=== PATIENT | male | born 1990 ===

== ENCOUNTER 2024-06-08 07:42 | Emergency (ER) | payer SELFPAY ==
[2024-06-08] VITALS (9 sets, daily range): BP systolic 116–181; BP diastolic 71–131; PULSE 102–119; RESP 16–22; TEMP 36.4–36.8; O2SAT 96–100; BMI 22.8
--- NOTE | 2024-06-08 07:35 | EDNOTE_ITS ---
Altered Mental Status RME/HPI General Chief Complaint: Altered Mental Status Stated Complaint: altered RME / HPI RME / HPI narrative: Patient BIBA no identity information confirmed. Found on the street, cold to touch blood glucose reads HIGH GCS 11 unaware of baseline. Patient not currently verbal Related Data Home Medications ?Medication ?Instructions ?Recorded ?Confirmed Unobtainable 06/08/24 06/08/24 Allergies Allergy/AdvReac Type Severity Reaction Status Date / Time Unable to Assess Allergy Verified 06/08/24 08:07 Review of Systems Review of Systems ROS Unobtainable: unobtainable due to mental status ED Exam Narrative Physical exam: GENERAL APPEARANCE: Seated, looking off to the right and a waxy catatonic state, unkept, his pants are undone down to his ankles (EMS states he was found this way). HEENT: NC, AT. Mucous membranes dry. EOMI, clear conjunctiva, oropharynx clear. NECK: No stiffness or restricted ROM. HEART: Normal rate and regular rhythm, normal S1/S1, no m/r/g LUNGS: CTAB, moving air well. No crackles or wheezes are heard. ABDOMEN: Soft, nontender, nondistended with good bowel sounds heard. EXTREMITIES: Without cyanosis, clubbing or edema. MUSCULOSKELETAL: FROM of all major joints, no chest tenderness NEUROLOGICAL: Grossly nonfocal. Moving all 4 extremities with a waxy flexibility, cranial nerves grossly intact Skin: Warm and dry without any rash, multiple tattoos with sexual innuendo Course Course Course Narrative: Patient had a labile mental status where he had an overt tonic-clonic seizure followed by a very violent/aggressive postictal phase requiring code weber with restraints. Due to labile mental status, patient was intubated for airway protection. See midlevel provider procedure note with myself as a purchasing supervisor for intubation. Quality Measures none Orders Category Date Time Status Bedside Blood Glucose NOW Care 06/08/24 07:50 Active EKG (ED ONLY) *Do not use* NOW Care 06/08/24 07:51 Completed Insert IV NOW Care 06/08/24 08:11 Active Referral - Isotope Technologist Stat Cons 06/08/24 10:48 Active Referral - Isotope Technologist Stat Cons 06/08/24 10:[address] head/brain wo con Stat Exams 06/08/24 08:49 Completed EKG (ED Only) Stat Exams 06/08/24 07:51 Draft XR chest 1V portable Stat Exams 06/08/24 11:13 Completed Alcohol, Blood Medical Stat Lab 06/08/24 07:55 Completed CBC Stat Lab 06/08/24 07:55 Completed CMP [Comprehensive Metabolic Panel] Stat Lab 06/08/24 07:55 Completed Drug Screen,Urine Stat Lab 06/08/24 08:09 Completed Ketone [Beta Hydroxybutyrate] Stat Lab 06/08/24 07:55 Completed Urinalysis Stat Lab 06/08/24 07:57 Completed Venous Blood Gas Stat Lab 06/08/24 07:55 Completed Dexamethasone Inj [Decadron Inj] Med 06/08/24 10:49 Discontinued 10 mg IV X1 ONE Etomidate Inj [Amidate Inj] Med 06/08/24 10:49 Discontinued 20 mg IV X1 ONE Insulin Regular Med 06/08/24 13:40 Discontinued 10 unit SC X1 ONE Insulin Regular Med 06/08/24 14:28 Discontinued 5 unit SC X1 ONE LORazepam [Ativan Inj] Med 06/08/24 09:55 Discontinued 2 mg .ROUTE .STK-MED ONE LORazepam [Ativan Inj] Med 06/08/24 10:11 Discontinued 2 mg IVP X1 ONE Mannitol Inj 20% IVPB 340 ml Med 06/08/24 12:40 Discontinued Pre-Mixed [Pre-mixed Bag] 1 bag IV X1 Propofol 1,000 mg Ivpb [Diprivan Ivpb] Med 06/08/24 11:14 Active 1,000 mg in 100 ml IV 5 mcg/kg/min Sodium Chloride 0.9% 1000 ml [Ns] 1,000 ml Med 06/08/24 07:56 Discontinued IV 999 mls/hr Sodium Chloride 0.9% 1000 ml [Ns] 1,000 ml Med 06/08/24 07:56 Discontinued IV 999 mls/hr Succinylcholine Inj [Anectine Inj] Med 06/08/24 10:49 Discontinued 120 mg IV X1 ONE levETIRAcetam INJ [Keppra Inj] Med 06/08/24 08:49 Discontinued 1,000 mg IVP X1 ONE Mechanical [Volume Ventilator] Stat RT 06/08/24 Active Vital Signs Vital signs: Vital Signs Temperature 97.5 F 06/08/24 07:40 Pulse Rate 102 H 06/08/24 07:40 Respiratory Rate 22 H 06/08/24 07:40 Blood Pressure 181/131 H 06/08/24 07:40 Pulse Oximetry (%) 98 06/08/24 07:40 Oxygen Delivery Method Room Air 06/08/24 07:40 Altered Mental Status MDM Narrative MDM Narrative:: Mr. Berrios presents [facility] the [facility] by EMS and altered mental status, nonverbal. He had a labile mental status here without a focal neurologic deficit. He presented initially more catatonic and a waxy state, that evolved to a full body tonic-clonic seizure followed by severe agitation/aggression, where he is not following commands or acknowledging his name. Given his significant cerebral edema and labile mental status he required intubation for airway protection and stabilization for transport to higher level of care with neurosurgery. Case was discussed with [facility] neurosurgery, Dr. Lynn and agrees to accept ER to ER for further management. Patient data External records reviewed:: EMS form Clinical information provided by:: EMS Social determinants that could affect healthcare access:: substance use Patient has the following chronic illnesses:: unknown How is presenting disease/condition affected by chronic disease/condition?: no chronic disease Evaluation data The following diagnostics were reviewed and interpreted by me:: lab results and EKG tracing(s) (Snuns tachycardia, rate 111, normal intervals, normal axis, no acute ST or T wave changes. ) Lab and/or radiology exams considered but not ordered:: none Interpretation Summary: Ordering Physician: Jorden Powers MD Date of Service: 06/08/24 Procedure(s): CT head/brain wo con Accession Number(s): [id number] cc: Jorden Powers MD; Paras Oliver MD~ Examination: CT brain head without contrast. 2-D sagittal coronal reconstructions Date and time of exam:June 08, 2024 0937 hrs. Indications: Altered mental status with seizure this morning CTDI: vol (mGy):48.3 DLP: (mGycm):1070 Technique: Multiple CT axial sections of the brain have been obtained, 5 mm slice thickness. Contrast has not been administered. 2-D sagittal, coronal reconstructions have been obtained Low dose protocols were performed. One or more of the following dose reduction techniques were used; automated exposure control, adjustment of the mA and/or KV according to patient size, use of iterative reconstruction technique. Findings: Large, 5 cm x 4 cm area of edema in the right frontal lobe which impinges upon the right frontal horn No acute hemorrhage density Ventricles are not enlarged Fourth ventricle is midline Cranial vault is intact Impression: Large abnormal area of edema in the right frontal lobe, differential would include cerebral neoplasm including cerebral metastatic lesion, infarct not excluded Recommend brain MRI MRA follow-up pre and postcontrast Dictated By: Paras Oliver MD Signed By: <Electronically signed by Paras Oliver MD in OV> 06/08/24 1023 ==== Ordering Physician: Jorden Powers MD Date of Service: 06/08/24 Procedure(s): XR chest 1V portable Accession Number(s): [id number] cc: Jorden Powers MD; Paras Oliver MD~ Examination: AP chest single view Technique: AP portable semiupright chest single view Exam date and time: June 08, 2024 1124 hrs. Indications: Postintubation Findings: Normal heart size Tracheal tube tip 5.8 cm above edwin No aspiration pneumonia Orogastric tube sidehole is near the GE junction Impression: No aspiration pneumonia or pulmonary edema Advance the orogastric tube 5 cm Dictated By: Paras Oliver MD Signed By: <Electronically signed by Paras Oliver MD in OV> 06/08/24 1323 Medications / Prescriptions Medications or Prescriptions considered but not ordered:: none Medication administrations:: Medication Administration History Propofol (Diprivan Ivpb) 1,000 mg in 100 mls @ 2.041 mls/hr IV .Q24H PRN; Protocol PRN Reason: PER PROTOCOL Stop: 07/08/24 11:13 Last Admin: 06/08/24 14:30 Dose: 50 mcg/kg/min, 20.412 mls/hr Documented By: VG Co-signed By: DO Titration: 06/08/24 14:30 Dose: Infused Documented By: VG Co-signed By: DO Titration: 06/08/24 12:10 Dose: 50 mcg/kg/min, 20.412 mls/hr Documented By: Titration: 06/08/24 12:05 Dose: 45 mcg/kg/min, 18.371 mls/hr Documented By: Titration: 06/08/24 12:00 Dose: 40 mcg/kg/min, 16.329 mls/hr Documented By: Titration: 06/08/24 11:55 Dose: 35 mcg/kg/min, 14.288 mls/hr Documented By: Titration: 06/08/24 11:50 Dose: 30 mcg/kg/min, 12.247 mls/hr Documented By: Titration: 06/08/24 11:45 Dose: 25 mcg/kg/min, 10.206 mls/hr Documented By: Titration: 06/08/24 11:40 Dose: 20 mcg/kg/min, 8.165 mls/hr Documented By: Titration: 06/08/24 11:35 Dose: 15 mcg/kg/min, 6.124 mls/hr Documented By: Titration: 06/08/24 11:30 Dose: 10 mcg/kg/min, 4.082 mls/hr Documented By: Admin: 06/08/24 11:25 Dose: 5 mcg/kg/min, 2.041 mls/hr Documented By: VG Co-signed By: Discontinued Medications Dexamethasone Sodium Phosphate (Dexamethasone Sod Phos Inj 10 Mg/Ml Vial) 10 mg IV X1 ONE Stop: 06/08/24 10:50 Last Admin: 06/08/24 11:05 Dose: 10 mg Documented By: VG Etomidate (Etomidate Inj 2 Mg/Ml Vial 10 Ml) 20 mg 0.3 mg/kg (20 mg) IV X1 ONE Stop: 06/08/24 10:50 Last Admin: 06/08/24 11:08 Dose: 20 mg Documented By: VG Sodium Chloride (Ns) 1,000 mls @ 999 mls/hr IV .Q1H1M ONE Stop: 06/08/24 08:56 Last Infusion: 06/08/24 10:12 Dose: Infused Documented By: Admin: 06/08/24 08:04 Dose: 999 mls/hr Documented By: MARKEL Sodium Chloride (Ns) 1,000 mls @ 999 mls/hr IV .Q1H1M ONE Stop: 06/08/24 08:56 Last Infusion: 06/08/24 10:12 Dose: Infused Documented By: Admin: 06/08/24 08:05 Dose: 999 mls/hr Documented By: MARKEL Mannitol 340 ml/ IV (Miscellaneous Supplies) 340 mls @ 453.333 mls/hr IV X1 ONE Stop: 06/08/24 12:41 Last Infusion: 06/08/24 15:19 Dose: Infused Documented By: Admin: 06/08/24 13:26 Dose: 453.333 mls/hr Documented By: MARKEL Insulin Human Regular (Insulin Hum Regular 1 Unit/0.01 Ml (Per Unit)) 10 unit SC X1 ONE Stop: 06/08/24 13:41 Last Admin: 06/08/24 14:29 Dose: Not Given Documented By: MARKEL Non-Admin Reason: Cancelled by Provider Insulin Human Regular (Insulin Hum Regular 1 Unit/0.01 Ml (Per Unit)) 5 unit SC X1 ONE Stop: 06/08/24 14:29 Last Admin: 06/08/24 14:29 Dose: 5 unit Documented By: MARKEL Co-signed By: Levetiracetam (Levetiracetam Inj 100 Mg/Ml Vial 5ml) 1,000 mg IVP X1 ONE Stop: 06/08/24 08:50 Last Admin: 06/08/24 08:57 Dose: 1,000 mg Documented By: MARKEL Lorazepam (Lorazepam 2 Mg/Ml Vial) Confirm Administered Dose 2 mg .ROUTE .STK- MED ONE Stop: 06/08/24 09:56 Last Admin: 06/08/24 10:12 Dose: Not Given Documented By: MARKEL Non-Admin Reason: Duplicate Medication on eMAR Lorazepam (Lorazepam 2 Mg/Ml Vial) 2 mg IVP X1 ONE Stop: 06/08/24 10:12 Last Admin: 06/08/24 10:12 Dose: 2 mg Documented By: MARKEL Succinylcholine Chloride (Succinylcholine Inj 20 Mg/Ml Vial 10 Ml) 120 mg IV X1 ONE Stop: 06/08/24 10:50 Last Admin: 06/08/24 11:09 Dose: 120 mg Documented By: VG see above Consultations Consultation(s) initiated? (list below): Yes Consultation #1 (Physician, Specialty, Details): Discussed with [facility] regarding the patients current status and results, agrees to transfer patient, accepted by Dr. Gómez. Consultation #2 (Physician, Specialty, Details): Case was discussed with [facility], neurosurgery and recommends starting mannitol 1 g/kg and to see if an MRI/MRA can be done here. As patient cannot consent to the screening form MRI cannot be done here at [facility]. Pending callback from neurosurgeon Time: 12:30 Diagnosis Differential diagnosis altered mental status: other (polysubstance abuse, intoxication, seizure, postictal, CVA) Most likely diagnosis given after review of the tests above:: brain mass, altered mental status, new onset seizure. Admission Indicated Admission indicated?: indicated Admission Request Was there a request for admission?: No Disposition Plan Disposition Plan: Transfer Critical Care Time Critical Care Time Critical Care Time: Yes Total Critical Care Time (min.): 60 Attestation: Excluding billable procedures for the rep response, analysis, management, treatment, deliberation with specialist, and documentation to prevent the very possible risk of cardiovascular and/or pulmonary decompensation or . Discharge Plan Plan Patient Disposition: Xfer Acute Care Fac Service Needed for Transfer: Neurosurgery Prescriptions/Referrals Prescriptions/Med Rec: No Action Unobtainable Problem List Clinical Impression: Altered mental status, Cerebral edema Patient/Caregiver Discharge Instructions Education Materials: ED Confusion Print Language: Maori Stand Alone Forms: [employer]ura Award Info., Patient Portal Info Letter
--- NOTE | 2024-06-08 07:51 | EKG_ITS ---
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
[2024-06-08 08:03] LABS: Base Excess, Venous 1 (-3-3); O2 Saturation, Venous 68 % (96-97); PCO2, Venous 54 mmHg (36-56); PO2, Venous 38 mmHg (15-58); pH, Venous 7.33 (7.33-7.66)
[2024-06-08 08:04] LABS: Basophils % (Auto) 0 % (0-2.5); Eosinophils % (Auto) 0 % (0-10); Hematocrit 44.1 % (41.0-53.0); Hemoglobin 15.7 g/dL (13.5-16.0); Immature Granulocytes % (Auto) 1 % (0-0); Immature Granulocytes Auto 0.07 Thou/mm3 (0.00-0.00); Lymphocytes # (Auto) 0.9 Thou/mm3 (1.0-4.8); Lymphocytes % (Auto) 8 % (10-50); Mean Corpuscular HGB Conc 35.6 g/dl (31.0-37.0); Mean Corpuscular Hemoglobin 29.5 pg (25.0-35.0); Mean Corpuscular Volume 83 fL (80-100); Monocytes # (Auto) 0.5 Thou/mm3 (0.0-0.8); Monocytes % (Auto) 4 % (0-12); Neutrophils # (Auto) 10.3 Thou/mm3 (1.8-7.7); Neutrophils % (Auto) 87 % (37-80); Nucleated Red Blood Cell % 0 /100 WBC (0); Platelet Count 614 Thou/mm3 (140-440); RDW Standard Deviation 35.7 fL (35.1-43.9); Red Blood Count 5.32 Miln/mm3 (4.50-5.90); White Blood Count 11.9 Thou/mm3 (3.8-10.6)
[2024-06-08] MEDS: SODIUM CHLORIDE 0.9% 1000 ML 1,000 ML 999 ML IV ×2 (08:04→08:05)
[2024-06-08 08:15] LABS: Beta Hydroxybutyrate 2.1 mmol/L (<0.6)
[2024-06-08 08:17] LABS: Collection Type, Urine Clean Catch
[2024-06-08 08:35] LABS: Alanine Aminotransferase 23 U/L (10-49); Albumin, Serum 5.2 gm/dL (3.5-5.0); Albumin/Globulin Ratio 1.5 (1.2-2.2); Alcohol, Blood Medical < 3.0 mg/dL (0-10.0); Alkaline Phosphatase 323 U/L (46-116); Anion Gap 11 (7-16); Aspartate Amino Transferase < 8 U/L (0-34); BUN/Creatinine Ratio 12 Ratio (12-20); Bilirubin,Total 0.4 mg/dL (0.3-1.2); Blood Urea Nitrogen 13 mg/dL (9-23); Calcium 10.7 mg/dL (8.3-10.6); Calcium (Corrected) 10.7 mg/dL (8.5-10.1); Carbon Dioxide 26.9 mMol/L (20.0-31.0); Chloride 101 mMol/L (98-107); Creatinine (Component) 1.1 mg/dL (0.6-1.3); Estimated Creatinine Clearance 90.2 mL/min (>60); Globulin 3.5 gm/dL (2.3-3.5); Osmolality,Calculated 306 (275-295); Sodium 139 mMol/L (136-145); Total Protein 8.7 gm/dL (5.7-8.2); eGFR > 60 See Note
[2024-06-08 08:37] LABS: Glucose 623 mg/dL (74-106)
[2024-06-08 08:44] LABS: Bilirubin,Urine Negative (Negative); Blood,Urine Negative (Negative); Clarity,Urine Clear (Clear/Hazy); Color,Urine Colorless (Lt Yel-Yel); Glucose, Urine 4+ (Negative); Ketones,Urine 2+ (Negative); Leukocyte Esterase,Urine Negative (Negative); Nitrite,Urine Negative (Negative); Protein,Urine Trace (Neg - Trace); RBC,Urine 2 /hpf (0-3); Specific Gravity,Urine 1.032 (1.001-1.035); Squamous Epithelial Cell,Urine 1 /hpf (0-5); Urobilinogen,Urine Negative mg/dL (0.0-1.0); WBC,Urine < 1 /hpf (0-5)
--- NOTE | 2024-06-08 08:49 | XR_ITS ---
Examination: CT brain head without contrast. 2-D sagittal coronal reconstructions Date and time of exam:June 08, 2024 0937 hrs. Indications: Altered mental status with seizure this morning CTDI: vol (mGy):48.3 DLP: (mGycm):1070 Technique: Multiple CT axial sections of the brain have been obtained, 5 mm slice thickness. Contrast has not been administered. 2-D sagittal, coronal reconstructions have been obtained Low dose protocols were performed. One or more of the following dose reduction techniques were used; automated exposure control, adjustment of the mA and/or KV according to patient size, use of iterative reconstruction technique. Findings: Large, 5 cm x 4 cm area of edema in the right frontal lobe which impinges upon the right frontal horn No acute hemorrhage density Ventricles are not enlarged Fourth ventricle is midline Cranial vault is intact Impression: Large abnormal area of edema in the right frontal lobe, differential would include cerebral neoplasm including cerebral metastatic lesion, infarct not excluded Recommend brain MRI MRA follow-up pre and postcontrast
[2024-06-08 08:54] LABS: Amphetamine/Methamp Scrn,U Positive (Negative); Barbiturate Screen,Urine Negative (Negative); Benzodiazepines Screen,Urine Negative (Negative); Benzoylecgonine Screen, Ur Negative (Negative); Fentanyl Screen,Urine Negative (Negative); Opiate Screen,Urine Negative (Negative); THC Screen,Urine Positive (Negative)
[2024-06-08] MEDS: levETIRAcetam INJ 100 MG/ML VIAL 5ML 1000 MG IVP (08:57)
[2024-06-08] MEDS: LORazepam 2 MG/ML VIAL IVP (10:12)
[2024-06-08] MEDS: DEXAMETHASONE SOD PHOS INJ 10 MG/ML VIAL IV (11:05)
--- NOTE | 2024-06-08 11:05 | PC.NURSE ---
Dr. Powers at bedside for intubation.
[2024-06-08] MEDS: ETOMIDATE INJ 2 MG/ML VIAL 10 ML 20 MG IV (11:08)
[2024-06-08] MEDS: SUCCINYLCHOLINE INJ 20 MG/ML VIAL 10 ML 120 MG IV (11:09)
--- NOTE | 2024-06-08 11:09 | PC.CM ---
Addendum entered by Dorothy Veliz RN 06/08/24 16:50: Dr. Powers was asked to complete the portion of the transfer paperwork that patient would have signed. He did not feel he should have to sign the form stating it ready did not justify a place and reason why he should sign. Patient was unconscious and not able to sign anything from arrival. Patient was found down when ambulance picked him up. We could not Identify any family and a correct date of . Karina and I signed the form where patient was to sign. I documented patient unable to sign. 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 I faxed over paperwork to [facility]. Packet made for [facility] and [facility]. CD made for [facility] packet. Addendum entered by Dorothy Veliz RN 06/08/24 14:05: I received a call from [facility] and they stated they were going to decline patient. I let them know that patent has been accepted by [facility]. Addendum entered by Dorothy Veliz RN 06/08/24 13:51: I received a call from Megan at [facility] and she states patient has been accepted by Dr. Miles Gómez ED to ED. Number to call and give report is [phone]. I will get packet together and call [facility]. Addendum entered by Dorothy Veliz RN 06/08/24 13:10: 1300 I received a call from Martha stating she spoke to Dr. Powers and we are going to try and get an MRI at our facility. [phone] I received a call from Martha with [facility] and she states [facility] would like me to fax over information directly to their ED department. fax # [phone]. I faxed over information today. [phone] Rosa Maria and [facility] spoke to Dr. Powers. They are both reviewing patient at this time. Original Note: I received a request for higher level transfer for neurosurgery. [facility] with [facility].
--- NOTE | 2024-06-08 11:13 | XR_ITS ---
Examination: AP chest single view Technique: AP portable semiupright chest single view Exam date and time: June 08, 2024 1124 hrs. Indications: Postintubation Findings: Normal heart size Tracheal tube tip 5.8 cm above edwin No aspiration pneumonia Orogastric tube sidehole is near the GE junction Impression: No aspiration pneumonia or pulmonary edema Advance the orogastric tube 5 cm
[2024-06-08] MEDS: PROPOFOL 1,000 MG IVPB 1,000 MG/100 ML VIAL 2.041 MG IV (11:25)
--- NOTE | 2024-06-08 11:30 | PD.EDADDENDU ---
ED Procedures Intubation Time out performed: Yes sedative: Etomidate Mg Given: 20 paralytic: Succinylcholine Mg Given: 120 Laryngoscope: fiber optic video scope Assist Device Used: fiber optic device ET Tube Size: 7.5 ET Tube Uncuffed: No Tube Secured Depth (cm): 24 Tube Secured Location: teeth Tube Placement Confirmation: visualized tube passing through cords, equal breath sounds bilaterally and confirmation by capnometry Patient Tolerated Procedure: well Intubation Complications: none Additional Comments: Successful intubation with direct visualization of ET tube passing through vocal cords with Dr. Powers at bedside during procedure. Secondary confirmation obtained via chest x-ray, equal breath sound bilaterally, and capnometry.
[2024-06-08] MEDS: PRE MIXED IV (13:26)
[2024-06-08] MEDS: MANNITOL 20% IV (13:26)
[2024-06-08] MEDS: INSULIN HUM REGULAR 1 UNIT/0.01 ML (PER UNIT) 5 UNIT SC (14:29)
[2024-06-08] MEDS: PROPOFOL 1,000 MG IVPB 1,000 MG/100 ML VIAL 20.412 MG IV (14:30)
--- NOTE | 2024-06-08 15:15 | PC.NURSE ---
report called for Brian VIDAL at [facility].
--- NOTE | 2024-06-08 16:30 | PC.NURSE ---
Pt picked up by [facility] for transfer to [facility].
== END 2024-06-08 15:15 | disposition short-term general hospital (02) ==
PROVIDERS: Emergency Provider Emergency Medicine
DX: G93.6 Cerebral edema (principal); R00.0 Tachycardia, unspecified; Z75.1 Person awaiting admission to adequate facility elsewhere
CPT/HCPCS: 31500; 51702; 36415; 70450; 71045; 80053; 80307; 80320; 81001; 82010; 82803; 85025; 93005; 94002; 96361; 96365; 96366; 96372; 96375; 99291; J0330; J1100; J1815; J1953; J2060; J2704; J3490; J7030; G0480